=== PATIENT | male | born 1995 | race Caucasian/White ===

== ENCOUNTER 2024-06-25 17:58 | Emergency (ER) | payer BC, SELFPAY ==
[2024-06-25 17:59] VITALS: BP 149/100
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
[2024-06-25] MEDS: PERCOCET 5/325 1 TABLET PO (19:47)
[2024-06-25] MEDS: SILVADENE 1 APPLIC TOPICAL (19:47)
[2024-06-25] MEDS: TORADOL 30 MG IM (19:47)
== END 2024-06-25 19:52 | disposition home or self-care (01) ==
LOC: EMR 17:58
PROVIDERS: EMERGENCY PHYSICIAN Emergency Medicine; FAMILY PHYSICIAN Family Medicine
DX: T23.231A Burn of second degree of multiple right fingers (nail), not including thumb, initial encounter (principal); T22.111A Burn of first degree of right forearm, initial encounter; T20.10XA Burn of first degree of head, face, and neck, unspecified site, initial encounter; X03.8XXA Other exposure to controlled fire, not in building or structure, initial encounter; R03.0 Elevated blood-pressure reading, without diagnosis of hypertension
CPT/HCPCS: 99284; 96372